=== PATIENT | male | born 1980 | race American Indian/Alaskan Native ===

== ENCOUNTER 2020-03-10 17:16 | Emergency (ER) | payer OTHER ==
[2020-03-10 20:46] VITALS: BP 156/95
[2020-03-10] MEDS ORDERED: MECLIZINE 25 MG TAB PO ONE (21:28)
--- NOTE | 2020-03-10 21:54 | Emergency Department Report ---
ED General Adult HPI - General Chief complaint: Medical Clearance Stated complaint: DIZZY/OUT OF MEDS Time Seen by Provider: 03/10/20 21:28 Source: patient Mode of arrival: Ambulatory Limitations: No Limitations - History of Present Illness Initial comments: Patient is a 39-year-old F Irish male with a past medical history of hypertension bipolar disorder who states he is out of his psychiatric medications as well as blood pressure medication. Patient states he felt very dizzy earlier today. Does have a recent negative Covid test but denies fevers chills cough cold congestion. Believes that his dizziness was coming from his blood pressure being elevated. He has been out of his medications for approximately a week. Patient states the dizziness is a spinning sensation. He has no nausea or vomiting. - Related Data Previous Rx's Medication Instructions Recorded Last Taken Type Amlodipine Besylate [Norvasc] 5 mg PO BID #60 tablet 03/10/20 Unknown Rx Ziprasidone [Geodon] 60 mg PO BID #60 capsule 03/10/20 Unknown Rx Allergies Allergy/AdvReac Type Severity Reaction Status Date / Time No Known Allergies Allergy Unverified 03/10/20 17:44 ED Review of Systems ROS: Stated complaint: DIZZY/OUT OF MEDS Other details as noted in HPI Comment: All other systems reviewed and negative ED Past Medical Hx - Past Medical History Previous Medical History?: Yes Hx Hypertension: Yes Hx Psychiatric Treatment: Yes (Bipolar) - Surgical History Past Surgical History?: Yes Additional Surgical History: skin graft - Social History Smoking Status: Current Every Day Smoker Substance Use Type: None - Medications Home Medications: Home Medications Medication Instructions Recorded Confirmed Last Taken Type Amlodipine Besylate [Norvasc] 5 mg PO BID #60 tablet 03/10/20 Unknown Rx Ziprasidone [Geodon] 60 mg PO BID #60 capsule 03/10/20 Unknown Rx ED Physical Exam - General Limitations: No Limitations General appearance: alert, in no apparent distress - Head Head exam: Present: atraumatic, normocephalic - Eye Eye exam: Present: normal appearance - ENT ENT exam: Present: mucous membranes moist - Neck Neck exam: Present: normal inspection - Respiratory Respiratory exam: Present: normal lung sounds bilaterally. Absent: respiratory distress, wheezes, rales, rhonchi - Cardiovascular Cardiovascular Exam: Present: regular rate, normal rhythm, normal heart sounds. Absent: systolic murmur, diastolic murmur, rubs, gallop - GI/Abdominal GI/Abdominal exam: Present: soft, normal bowel sounds. Absent: distended, tenderness, guarding, rebound - Rectal Rectal exam: Present: deferred - Extremities Exam Extremities exam: Present: normal inspection - Back Exam Back exam: Present: normal inspection - Neurological Exam Neurological exam: Present: alert, oriented X3 - Psychiatric Psychiatric exam: Present: normal affect, normal mood - Skin Skin exam: Present: warm, dry, intact, normal color. Absent: rash ED Course Vital Signs 03/10/20 03/10/20 17:46 20:40 Temperature 98.0 F 98.3 F Pulse Rate 90 88 Respiratory 20 18 Rate Blood Pressure 143/92 Blood Pressure 156/95 [Left] O2 Sat by Pulse 97 97 Oximetry ED Medical Decision Making - Medical Decision Making Patient will have his medications refilled. Will be discharged home. Critical care attestation.: If time is entered above; I have spent that time in minutes in the direct care of this critically ill patient, excluding procedure time. ED Disposition Clinical Impression: Hypertensive urgency, Vertigo, Bipolar disorder, Medical non-compliance Disposition: DC-01 TO HOME OR SELFCARE Is pt being admited?: No Does the pt Need Aspirin: No Condition: Stable Instructions: Managing Bipolar Disorder, Hypertension, Adult, [id number] Prescriptions: Ziprasidone [Geodon] 60 mg PO BID #60 capsule Amlodipine Besylate [Norvasc] 5 mg PO BID #60 tablet Time of Disposition: 21:54
== END 2020-03-10 22:00 | disposition home or self-care (01) ==
LOC: ED 17:16
DX: F31.9 Bipolar disorder, unspecified (principal); I16.0 Hypertensive urgency; F17.200 Nicotine dependence, unspecified, uncomplicated; Z79.899 Other long term (current) drug therapy
CPT/HCPCS: 99282

== ENCOUNTER 2020-06-17 12:28 | Emergency (ER) | payer OTHER ==
[2020-06-17 13:44] VITALS: BP 133/91
[2020-06-17 14:38] LABS: Alanine Aminotransferase 24 units/L (7-56); Albumin 4.3 g/dL (3.9-5); BUN/Creatinine Ratio 13; Blood Urea Nitrogen 15 mg/dL (9-20); Calcium 8.9 mg/dL (8.4-10.2); Hemolysis Index 5
[2020-06-17 14:45] LABS: Basophils % (Auto) 0.7 % (0.0-1.8); Eosinophils % (Auto) 0.4 % (0.0-4.3); Lymphocytes # (Auto) 2.2 K/mm3 (1.2-5.4); Lymphocytes % (Auto) 40.9 % (13.4-35.0); Mean Corpuscular HGB Conc 36 % (32-34); Mean Corpuscular Volume 89 fl (84-94); Monocytes # (Auto) 0.2 K/mm3 (0.0-0.8); Monocytes % (Auto) 4.2 % (0.0-7.3); Platelet Count 337 K/mm3 (140-440); Red Blood Count 4.21 M/mm3 (3.65-5.03); Red Cell Distribution Width 13.1 % (13.2-15.2)
[2020-06-17 14:51] LABS: Hematocrit 37.4 % (35.5-45.6); Hemoglobin 13.6 gm/dl (11.8-15.2)
[2020-06-17] MEDS ORDERED: SODIUM CHLORIDE 0.9% 1000 ML 1,000 ML IV ONE (15:03)
[2020-06-17] MEDS ORDERED: MECLIZINE 25 MG TAB PO ONE (15:03)
--- NOTE | 2020-06-17 15:31 | Emergency Department Report ---
ED Dizziness HPI - General Chief Complaint: Dizziness Stated Complaint: DIZZINESS Time Seen by Provider: 06/17/20 14:12 Source: patient Mode of arrival: Ambulatory Limitations: No Limitations - History of Present Illness Initial Comments: This is a 39-year-old male nontoxic, well nourished in appearance, no acute signs of distress presents to the ED with c/o of dizziness. Patient stated has been out of his Geodon and Norvasc medication the past several days which causes him to have the symptoms. Patient denies any headache or head trauma. Patient stated the dizziness is worsened with position change. Patient denies any numbness, tingling, headache, stiff neck, chest pain, shortness of breathe, numbness or tingling. Denies any visual changes or blurry vision. Denies any drug allergies. Otherwise denies any psychiatric symptoms. MD Complaint: dizziness -: days(s) Timing: gradual onset Description: lightheadedness History of Same: Yes History of Trauma: No Severity: mild Improves With: remaining still Worsens With: position Associated Symptoms: denies other symptoms. denies: ataxia, chest pain, confusion, cough, diaphoresis, fever/chills, loss of appetite, malaise, rash, seizure, shortness of breath, syncope, weakness - Related Data Previous Rx's Medication Instructions Recorded Last Taken Type Amlodipine Besylate [Norvasc] 5 mg PO BID #60 tablet 06/17/20 Unknown Rx Ziprasidone [Geodon] 60 mg PO BID #60 capsule 06/17/20 Unknown Rx Allergies Allergy/AdvReac Type Severity Reaction Status Date / Time No Known Allergies Allergy Unverified 03/10/20 17:44 ED Review of Systems ROS: Stated complaint: DIZZINESS Other details as noted in HPI Comment: All other systems reviewed and negative Constitutional: denies: chills, fever Eyes: denies: eye pain, eye discharge, vision change ENT: denies: ear pain, throat pain Respiratory: denies: cough, shortness of breath, wheezing Cardiovascular: denies: chest pain, palpitations Endocrine: no symptoms reported Gastrointestinal: denies: abdominal pain, nausea, diarrhea Genitourinary: denies: urgency, dysuria Musculoskeletal: denies: back pain, joint swelling, arthralgia Skin: denies: rash, lesions Neurological: vertigo. denies: headache, weakness, numbness, paresthesias, confusion, abnormal gait Psychiatric: denies: anxiety, depression Hematological/Lymphatic: denies: easy bleeding, easy bruising ED Past Medical Hx - Past Medical History Previous Medical History?: Yes Hx Hypertension: Yes Hx Psychiatric Treatment: Yes (Bipolar) - Surgical History Additional Surgical History: skin graft - Social History Smoking Status: Current Every Day Smoker Substance Use Type: None - Medications Home Medications: Home Medications Medication Instructions Recorded Confirmed Last Taken Type Amlodipine Besylate [Norvasc] 5 mg PO BID #60 tablet 06/17/20 Unknown Rx Ziprasidone [Geodon] 60 mg PO BID #60 capsule 06/17/20 Unknown Rx ED Physical Exam - General Limitations: No Limitations General appearance: alert, in no apparent distress - Head Head exam: Present: atraumatic, normocephalic - Eye Eye exam: Present: normal appearance, PERRL, EOMI - Neck Neck exam: Present: normal inspection, full ROM. Absent: tenderness, meningismus, lymphadenopathy - Respiratory Respiratory exam: Present: normal lung sounds bilaterally. Absent: respiratory distress, wheezes, rales, rhonchi, stridor, chest wall tenderness, accessory muscle use, decreased breath sounds, prolonged expiratory - Cardiovascular Cardiovascular Exam: Present: regular rate, normal rhythm, tachycardia, normal heart sounds. Absent: irregular rhythm, systolic murmur, diastolic murmur, rubs, gallop - GI/Abdominal GI/Abdominal exam: Present: soft. Absent: distended, tenderness - Extremities Exam Extremities exam: Present: normal inspection, full ROM - Back Exam Back exam: Present: normal inspection, full ROM. Absent: tenderness, CVA tenderness (R), CVA tenderness (L), muscle spasm, paraspinal tenderness, vertebral tenderness, rash noted - Neurological Exam Neurological exam: Present: alert, oriented X3, normal gait - Expanded Neurological Exam Expanded Patient oriented to: Present: person, place, time Cranial nerves: EOM's Intact: Normal, Facial Sensation: Normal Cerebellar function: Finger to Nose: Normal Upper motor neuron: Pronator Drift: Normal, Sensory Extinction: Normal Motor strength exam: RUE: 5, LUE: 5, RLE: 5, LLE: 5 Best Eye Response (Nic): (4) open spontaneously Best Motor Response (Nic): (6) obeys commands Best Verbal Response (Huggins): (5) oriented Huggins Total: 15 - Psychiatric Psychiatric exam: Present: normal affect, normal mood - Skin Skin exam: Present: warm, dry, intact, normal color. Absent: rash ED Course Vital Signs 06/17/20 13:43 Temperature 98.1 F Pulse Rate 103 H Respiratory 20 Rate Blood Pressure 133/91 [Right] O2 Sat by Pulse 98 Oximetry - Reevaluation(s) Reevaluation #1: 06/17/20 15:29 Patient is speaking in full sentences with no signs of distress noted. ED Medical Decision Making - Lab Data Result diagrams: 06/17/20 13:55 06/17/20 13:55 Lab Results 06/17/20 06/17/20 Range/Units 13:55 13:55 WBC 5.4 (4.5-11.0) K/mm3 RBC 4.21 (3.65-5.03) M/mm3 Hgb 13.6 (11.8-15.2) gm/dl Hct 37.4 (35.5-45.6) % MCV 89 (84-94) fl MCH 32 (28-32) pg MCHC 36 H (32-34) % RDW 13.1 L (13.2-15.2) % Plt Count 337 (140-440) K/mm3 Lymph % (Auto) 40.9 H (13.4-35.0) % [place] % (Auto) 4.2 (0.0-7.3) % Eos % (Auto) 0.4 (0.0-4.3) % Baso % (Auto) 0.7 (0.0-1.8) % Lymph # (Auto) 2.2 (1.2-5.4) K/mm3 [place] # (Auto) 0.2 (0.0-0.8) K/mm3 Eos # (Auto) 0.0 (0.0-0.4) K/mm3 Baso # (Auto) 0.0 (0.0-0.1) K/mm3 Seg Neutrophils % 53.8 (40.0-70.0) % Seg Neutrophils # 2.9 (1.8-7.7) K/mm3 Sodium 139 (137-145) mmol/L Potassium 3.4 L (3.6-5.0) mmol/L Chloride 102.8 (98-107) mmol/L Carbon Dioxide 23 (22-30) mmol/L Anion Gap 17 mmol/L BUN 15 (9-20) mg/dL Creatinine 1.2 (0.8-1.3) mg/dL Estimated GFR > 60 ml/min BUN/Creatinine Ratio 13 % Glucose 195 H (75-100) mg/dL Calcium 8.9 (8.4-10.2) mg/dL Total Bilirubin 0.30 (0.1-1.2) mg/dL AST 29 (5-40) units/L ALT 24 (7-56) units/L Alkaline Phosphatase 67 (35-129) units/L Troponin T < 0.010 (0.00-0.029) ng/mL Total Protein 7.9 (6.3-8.2) g/dL Albumin 4.3 (3.9-5) g/dL Albumin/Globulin Ratio 1.2 % - EKG Data 06/17/20 15:33 Normal sinus rhythm at [address] or T wave normalities. Reviewed and signed by MD. - Medical Decision Making Patient is stable and was examined by me. Labs obtained. Patient refused IV treatment and p.o. potassium as he stated he needs to leave now and tow picker his daughter. Patient stated he does need his medication refill. Patient was instructed of my concerns and further evaluation and treatment but patient refused and signed AGAINST MEDICAL ADVICE. I will still refill patient's medication as he does need them. Otherwise physical exam is unremarkable. Patient was instructed to follow-up with a primary care doctor as soon as possible or if symptoms worsen and continue return to emergency room as soon as possible. At time of signing AMA, the patient does not seem toxic or ill in appearance. No acute signs of distress noted. No further questions noted by the patient. Critical care attestation.: If time is entered above; I have spent that time in minutes in the direct care of this critically ill patient, excluding procedure time. ED Disposition Clinical Impression: Dizziness, Medication refill Disposition: DC-07 LEFT AGAINST MED ADVICE Is pt being admited?: No Does the pt Need Aspirin: No Condition: Undetermined Instructions: Dizziness Additional Instructions: Follow-up with a primary care doctor as soon as possible or if symptoms worsen and continue return to emergency room as soon as possible. You are leaving AGAINST MEDICAL ADVICE. As instructed and educated to you during your ED stay that this is a serious medical condition and if not further evaluated and or treated this could cause serious complications and or . Prescriptions: Ziprasidone [Geodon] 60 mg PO BID #60 capsule Amlodipine Besylate [Norvasc] 5 mg PO BID #60 tablet Referrals: PRIMARY CAREMD [Primary Care Provider] - 3-5 Days BERE MANCUSO MD [Staff Physician] - 3-5 Days Forms: AMA Form Time of Disposition: 15:31 Print Language: NICARAGUAN
== END 2020-06-17 15:36 | disposition left against medical advice (07) ==
LOC: ED 12:28
DX: R42 Dizziness and giddiness (principal); I10 Essential (primary) hypertension; F31.9 Bipolar disorder, unspecified; F17.200 Nicotine dependence, unspecified, uncomplicated; Z79.899 Other long term (current) drug therapy; Z76.0 Encounter for issue of repeat prescription
CPT/HCPCS: 36415; 80053; 84484; 85025; 93005; 99283

== ENCOUNTER 2021-05-01 08:23 | Emergency (ER) | payer OTHER ==
[2021-05-01] MEDS ORDERED: LORazepam 2 MG/ML VIAL IM STA (10:14)
[2021-05-01] MEDS ORDERED: METOPROLOL TARTRATE 50 MG TAB PO ONE (10:14)
--- NOTE | 2021-05-01 10:15 | Emergency Department Report ---
ED General Adult HPI - General Chief complaint: High BP Stated complaint: I need my medication refilled. I am having anxiety Time Seen by Provider: 05/01/21 09:48 Source: patient, RN notes reviewed, old records reviewed Mode of arrival: Ambulatory Limitations: No Limitations - History of Present Illness Initial comments: The patient was evaluated in the emergency department for symptoms described in the history of present illness. He/she was evaluated in the context of the global COVID-19 pandemic, which necessitated consideration that the patient might be at risk for infection with the virus that causes COVID-19. Institutional protocols and algorithms that pertain to the evaluation of patients at risk for COVID-19 are in a state of rapid change based on information released by regulatory bodies including the CDC and federal and state organizations. These policies and algorithms were followed during the patient's care in the emergency department. Please note that these policies, procedures and recommendations changed on a rapid basis. Mr. Wong is a pleasant 40-year-old gentleman, with a history of anxiety hypertension and psychiatric disease, who presents to the ER today with a complaint of painless request of tachycardia, lightheadedness, and anxiety. He reports that his outpatient psychiatrist is out of town, and he is not able to get his Geodon refilled. He also takes amlodipine. He reports that he takes Geodon, 120 mg, nightly, and has been out of his medication for 2 days. He is also out of his blood pressure medication. He is not homicidal suicidal. He is not having physical pain. He is experiencing anxiety. He reports no travel, surgery, immobilization, DVT/PE risk factors. He felt improved in the emergency room with an anxiolytics, and metoprolol. -: Gradual, days(s) Consistency: constant Improves with: medication, rest Worsens with: other (Not having medication) - Related Data Previous Rx's Medication Instructions Recorded Last Taken Type Amlodipine Besylate [Norvasc] 5 mg PO QDAY #30 tablet 05/01/21 Unknown Rx Ziprasidone [Geodon] 120 mg PO QHS #14 capsule 05/01/21 Unknown Rx Allergies Allergy/AdvReac Type Severity Reaction Status Date / Time egg AdvReac Unknown Verified 05/01/21 08:37 ED Review of Systems ROS: Stated complaint: LIGHT HEADED, HBP X2 DAYS Other details as noted in HPI Constitutional: denies: fever Eyes: denies: eye discharge ENT: denies: epistaxis Respiratory: denies: cough Cardiovascular: palpitations. denies: chest pain Gastrointestinal: denies: abdominal pain, nausea, vomiting Neurological: denies: weakness, other Psychiatric: anxiety. denies: homicidal thoughts ED Past Medical Hx - Past Medical History Hx Hypertension: Yes Hx Psychiatric Treatment: Yes (Bipolar) - Surgical History Additional Surgical History: skin graft - Social History Smoking Status: Current Every Day Smoker Substance Use Type: None - Medications Home Medications: Home Medications Medication Instructions Recorded Confirmed Last Taken Type Amlodipine Besylate [Norvasc] 5 mg PO QDAY #30 tablet 05/01/21 Unknown Rx Ziprasidone [Geodon] 120 mg PO QHS #14 capsule 05/01/21 Unknown Rx ED Physical Exam - General Limitations: No Limitations General appearance: alert, in no apparent distress - Head Head exam: Present: atraumatic, normocephalic - Eye Eye exam: Present: normal appearance, EOMI. Absent: nystagmus - ENT ENT exam: Present: normal exam, normal orophraynx, mucous membranes moist, norm al external ear exam - Neck Neck exam: Present: normal inspection, full ROM. Absent: tenderness, meningismus - Respiratory Respiratory exam: Present: normal lung sounds bilaterally. Absent: respiratory distress, wheezes, rales, rhonchi, stridor, decreased breath sounds - Cardiovascular Cardiovascular Exam: Present: regular rate, normal rhythm, tachycardia, normal heart sounds. Absent: bradycardia, irregular rhythm, systolic murmur, diastolic murmur, rubs, gallop - GI/Abdominal GI/Abdominal exam: Present: soft. Absent: distended, tenderness, guarding, rebound, rigid, pulsatile mass - Rectal Rectal exam: Present: deferred - Extremities Exam Extremities exam: Present: normal inspection, full ROM, other (2+ pulses noted in the bilateral upper and lower extremities. There is no palpable cord. negative Homans sign. Muscular compartments are soft. The pelvis is stable.). Absent: pedal edema, calf tenderness - Back Exam Back exam: Present: normal inspection, full ROM. Absent: tenderness, CVA tenderness (R), CVA tenderness (L), paraspinal tenderness, vertebral tenderness - Neurological Exam Neurological exam: Present: alert, oriented X3, normal gait, other (No facial droop. Tongue midline. Extraocular movements intact bilaterally. Facial sensation intact to light touch in V1, V2, V3 distribution bilaterally. 5 and a 5 strength in 4 extremities. Sensation intact to light touch in 4 extremities.). Absent: motor sensory deficit - Psychiatric Psychiatric exam: Present: anxious. Absent: homicidal ideation, suicidal idea tion - Skin Skin exam: Present: warm, dry, intact, normal color. Absent: rash ED Course Vital Signs 05/01/21 05/01/21 08:33 11:28 Temperature 98.8 F Pulse Rate 120 H 104 H Respiratory 20 Rate Blood Pressure 152/106 Blood Pressure 168/109 [Right] O2 Sat by Pulse 100 Oximetry ED Medical Decision Making - Lab Data Result diagrams: 05/01/21 10:38 05/01/21 10:38 Vital Signs 05/01/21 05/01/21 08:33 11:28 Temperature 98.8 F Pulse Rate 120 H 104 H Respiratory 20 Rate Blood Pressure 152/106 Blood Pressure 168/109 [Right] O2 Sat by Pulse 100 Oximetry Lab Results 05/01/21 05/01/21 05/01/21 Range/Units 10:38 10:38 10:38 WBC 10.3 (4.5-11.0) K/mm3 RBC 3.98 (3.65-5.03) M/mm3 Hgb 12.1 (11.8-15.2) gm/dl Hct 36.6 (35.5-45.6) % MCV 92 (84-94) fl MCH 30 (28-32) pg MCHC 33 (32-34) % RDW 14.7 (13.2-15.2) % Plt Count 394 (140-440) K/mm3 Sodium 138 (137-145) mmol/L Potassium 3.4 L (3.6-5.0) mmol/L Chloride 98.8 (98-107) mmol/L Carbon Dioxide 22 (22-30) mmol/L Anion Gap 21 mmol/L BUN 22 H (9-20) mg/dL Creatinine 1.1 (0.8-1.3) mg/dL Estimated GFR > 60 ml/min BUN/Creatinine Ratio 20 % Glucose 90 (75-100) mg/dL Calcium 9.9 (8.4-10.2) mg/dL Magnesium 2.10 (1.7-2.3) mg/dL Total Creatine Kinase 807 H (55-170) units/L TSH 2.430 (0.270-4.200) mlU/mL Salicylates (2.8-20.0) mg/dL Acetaminophen (10.0-30.0) ug/mL 05/01/21 05/01/21 Range/Units 10:38 10:38 WBC (4.5-11.0) K/mm3 RBC (3.65-5.03) M/mm3 Hgb (11.8-15.2) gm/dl Hct (35.5-45.6) % MCV (84-94) fl MCH (28-32) pg MCHC (32-34) % RDW (13.2-15.2) % Plt Count (140-440) K/mm3 Sodium (137-145) mmol/L Potassium (3.6-5.0) mmol/L Chloride (98-107) mmol/L Carbon Dioxide (22-30) mmol/L Anion Gap mmol/L BUN (9-20) mg/dL Creatinine (0.8-1.3) mg/dL Estimated GFR ml/min BUN/Creatinine Ratio % Glucose (75-100) mg/dL Calcium (8.4-10.2) mg/dL Magnesium (1.7-2.3) mg/dL Total Creatine Kinase (55-170) units/L TSH (0.270-4.200) mlU/mL Salicylates < 0.3 L (2.8-20.0) mg/dL Acetaminophen 5.0 L (10.0-30.0) ug/mL - EKG Data -: EKG Interpreted by Ok EKG shows normal: sinus rhythm Rate: tachycardia - EKG Data When compared to previous EKG there are: previous EKG unavailable 05/01/21 11:55 The EKG is interpreted at 10: 17 Sinus rhythm, tachycardia, rate 109 bpm. Normal axis, normal P wave axis, high left ventricular voltage, QTC 5 1 3 ms. Abnormal EKG. Not a STEMI. DE interval within normal limits. - Medical Decision Making Differential diagnosis, including but not limited to: Orthostasis, vagal event, anxiety, electrolyte derangement, encounter for medical screening examination, encounter for behavioral health screening examination, medication refill Assessment and plan: 40-year-old gentleman, who was afebrile, with reassuring vital signs with the exception of tachycardia, with markedly improved tachycardia, who is not tachypneic or hypoxic, who denies DVT/PE risk factors, who is low risk by Wells criteria for pulmonary embolism, with a GCS of 15 who walks with a steady gait, who is not homicidal or suicidal, who presents to the ER today with a complaint of painless anxiety, and request for refill on his Norvasc, and Geodon. He reports that he takes Geodon 120 mg each night. He reports that his outpatient psychiatrist is currently out of the area, and he is not able to obtain outpatient follow-up. He felt much improved after supportive medication here in the emergency room. Counseled patient that we can give a 1 week refill on Geodon, and 1 month refill on his Norvasc. He will need to follow-up with an outpatient primary care doctor, and behavioral health specialist for his Geodon refill. This patient does not meet criteria for 1013 hold or involuntary hold. Laboratory studies unremarkable, mild hypokalemia reviewed and appreciated, diet lifestyle modifications. On final reevaluation, patient resting comfortably in stretcher, talking on his cell phone, in no acute distress, and endorses that he has somebody who can pick him up. Return precautions reviewed. Tachycardia much improved when compared to initial evaluation. Critical care attestation.: If time is entered above; I have spent that time in minutes in the direct care of this critically ill patient, excluding procedure time. ED Disposition Clinical Impression: Medication refill, Elevated blood pressure reading, Hypokalemia, Anxiety Disposition: 01 HOME / SELF CARE / HOMELESS Is pt being admited?: No Does the pt Need Aspirin: No Condition: Good Additional Instructions: As we discussed, patient will receive a 1 week refill on Geodon, and 1 month refill on his blood pressure medication. The patient should follow-up as soon as possible with an outpatient primary care doctor behavioral health specialist to for his history of anxiety and bipolar, and to have Geodon for the refill. Local primary care and mental health resources have been listed in this patient's paperwork. Patient found to have slightly low potassium, patient should consume foods that are high in potassium, such as banana, avocado, and potato. Participate in physical activities as tolerated, exercise, attempt to lose weight. Long-term complications of hypertension and elevated blood pressure include stroke, heart attack, disability, paralysis, and loss of quality of life. Please return to the emergency room right away with new pain, worsened pain, migration of pain, projectile vomiting, change in mental status, confusion, inability tolerate liquid feeds, new, worsened or different symptoms not present on the initial emergency room evaluation Prescriptions: Ziprasidone [Geodon] 120 mg PO QHS #14 capsule Amlodipine Besylate [Norvasc] 5 mg PO QDAY #30 tablet Referrals: PRIMARY CARE, [Primary Care Provider] - 3-5 Days [facility] [Outside] - 3-5 Days [facility] [Outside] - 3-5 Days [facility] [Provider Group] - 3-5 Days Forms: Work/School Release Form(ED)
[2021-05-01 11:15] LABS: Hematocrit 36.6 % (35.5-45.6); Hemoglobin 12.1 gm/dl (11.8-15.2); Mean Corpuscular HGB Conc 33 % (32-34); Mean Corpuscular Volume 92 fl (84-94); Platelet Count 394 K/mm3 (140-440); Red Blood Count 3.98 M/mm3 (3.65-5.03); Red Cell Distribution Width 14.7 % (13.2-15.2)
[2021-05-01 11:22] LABS: BUN/Creatinine Ratio 20; Blood Urea Nitrogen 22 mg/dL (9-20); Calcium 9.9 mg/dL (8.4-10.2); Hemolysis Index 31
[2021-05-01] MEDS ORDERED: POTASSIUM CHLORIDE ER 20 MEQ TAB PO ONE (11:45)
[2021-05-01 11:46] VITALS: BP 152/106
--- NOTE | 2021-05-02 08:48 | Electrocardiograph Report ---
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
== END 2021-05-01 12:10 | disposition home or self-care (01) ==
LOC: ED 08:23
DX: I10 Essential (primary) hypertension (principal); E87.6 Hypokalemia; F31.9 Bipolar disorder, unspecified; F41.9 Anxiety disorder, unspecified; Z76.0 Encounter for issue of repeat prescription
CPT/HCPCS: 36415; 80048; 82550; 83735; 84443; 85027; 93005; 93010; 96372; 99283; J2060; 80320; G0480

== ENCOUNTER 2021-11-23 07:47 | Emergency (ER) | payer OTHER ==
[2021-11-23 08:04] VITALS: BP 192/121
--- NOTE | 2021-11-23 10:28 | Emergency Department Report ---
ED Recheck HPI - General Chief Complaint: High BP Stated Complaint: LIGHTHEADED/MEDS REFILL Time Seen by Provider: 11/23/21 10:05 Source: patient Mode of arrival: Ambulatory Limitations: No Limitations - History of Present Illness Initial Comments: 41-year-old black male with a past medical history of hypertension and bipolar disorder presents to the emergency department for requesting a medication refill. He states that he has been working a lot and has not been able to get a refill of his amlodipine and Geodon. He states that he know he has had an elevated blood pressure and has had intermittent lightheadedness since then. He denies chest pain, shortness of breath, nausea, vomiting, and diaphoresis. He states that he just wants a refill of his medication because he has an appointment with his doctor in 2 weeks. Complaint: medication refill request Returns Today for: request for prescription Associated Symptoms: denies: fever, chills, chest pain, shortness of breath, rash, malaise, nasuea, abdominal pain - Related Data Previous Rx's Medication Instructions Recorded Last Taken Type Amlodipine Besylate [Norvasc] 5 mg PO QDAY #30 tablet 05/01/21 Unknown Rx Ziprasidone [Geodon] 120 mg PO QHS #14 capsule 05/01/21 Unknown Rx Ziprasidone HCl [Geodon] 160 mg PO DAILY #60 cap 11/23/21 Unknown Rx amLODIPine 10 mg PO DAILY #30 tab 11/23/21 Unknown Rx Allergies Allergy/AdvReac Type Severity Reaction Status Date / Time egg AdvReac Unknown Verified 11/23/21 08:05 ED Review of Systems ROS: Stated complaint: LIGHTHEADED/MEDS REFILL Other details as noted in HPI Comment: All other systems reviewed and negative Constitutional: denies: chills, fever Eyes: denies: vision change Respiratory: denies: shortness of breath, SOB with exertion, SOB at rest Cardiovascular: denies: chest pain, palpitations Gastrointestinal: denies: abdominal pain, nausea, vomiting Genitourinary: denies: urgency, dysuria, frequency Musculoskeletal: denies: back pain Neurological: denies: headache, weakness ED Past Medical Hx - Past Medical History Hx Hypertension: Yes Hx Psychiatric Treatment: Yes (Bipolar) - Surgical History Additional Surgical History: skin graft - Social History Smoking Status: Current Every Day Smoker Substance Use Type: None - Medications Home Medications: Home Medications Medication Instructions Recorded Confirmed Last Taken Type Amlodipine Besylate [Norvasc] 5 mg PO QDAY #30 tablet 05/01/21 Unknown Rx Ziprasidone [Geodon] 120 mg PO QHS #14 capsule 05/01/21 Unknown Rx Ziprasidone HCl [Geodon] 160 mg PO DAILY #60 cap 11/23/21 Unknown Rx amLODIPine 10 mg PO DAILY #30 tab 11/23/21 Unknown Rx ED Physical Exam - General Limitations: No Limitations General appearance: alert, in no apparent distress - Head Head exam: Present: atraumatic, normocephalic - Eye Eye exam: Absent: conjunctival injection - Neck Neck exam: Present: normal inspection, full ROM. Absent: tenderness, lymphadenopathy - Respiratory Respiratory exam: Present: normal lung sounds bilaterally. Absent: respiratory distress, wheezes, rales, rhonchi, stridor, chest wall tenderness - Cardiovascular Cardiovascular Exam: Present: regular rate, normal heart sounds - GI/Abdominal GI/Abdominal exam: Present: soft, normal bowel sounds. Absent: distended, tenderness, guarding, rebound, rigid - Extremities Exam Extremities exam: Present: normal inspection, full ROM, normal capillary refill. Absent: tenderness, pedal edema, joint swelling, calf tenderness - Back Exam Back exam: Present: normal inspection. Absent: CVA tenderness (R), CVA tenderness (L) - Neurological Exam Neurological exam: Present: alert, oriented X3, normal gait - Psychiatric Psychiatric exam: Present: normal affect, normal mood - Skin Skin exam: Present: warm, dry, intact, normal color ED Course Vital Signs 11/23/21 08:02 Temperature 98.8 F Pulse Rate 99 H Respiratory 18 Rate Blood Pressure 192/121 [Left] O2 Sat by Pulse 99 Oximetry ED Recheck MDM - Differential Diagnosis Prescription Refill(s) - Medical Decision Making 41-year-old black male with a past medical history of hypertension and bipolar disorder presents to the emergency department for requesting a medication refill. He states that he has been working a lot and has not been able to get a refill of his amlodipine and Geodon. He states that he know he has had an elevated blood pressure and has had intermittent lightheadedness since then. He denies chest pain, shortness of breath, nausea, vomiting, and diaphoresis. He states that he just wants a refill of his medication because he has an appointment with his doctor in 2 weeks. Physical exam unremarkable and patient denies any symptoms at this time. He has declined any further work-up and wants refill of his medications only. Patient will be given medication refill as requested and advised to follow-up with his primary care provider as planned and return to the emergency department as needed he verbalizes understanding of and agreement with plan of care. Critical care attestation.: If time is entered above; I have spent that time in minutes in the direct care of this critically ill patient, excluding procedure time. ED Disposition Clinical Impression: Medication refill Disposition: 01 HOME / SELF CARE / HOMELESS Is pt being admited?: No Does the pt Need Aspirin: No Condition: Stable Additional Instructions: Take medications as directed. Follow-up with your primary care provider as planned. Return to the emergency department as needed. Prescriptions: amLODIPine 10 mg PO DAILY #30 tab Ziprasidone HCl [Geodon] 160 mg PO DAILY #60 cap Referrals: BERE MANCUSO MD [Staff Physician] - 3-5 Days Forms: Work/School Release Form(ED) Time of Disposition: 10:30
== END 2021-11-23 12:37 | disposition home or self-care (01) ==
LOC: ED 07:47
DX: I10 Essential (primary) hypertension (principal); F31.9 Bipolar disorder, unspecified; Z76.0 Encounter for issue of repeat prescription; F17.200 Nicotine dependence, unspecified, uncomplicated; Z79.899 Other long term (current) drug therapy; Z91.012 Allergy to eggs
CPT/HCPCS: 99282